=== PATIENT | female | born 2000 | race African-American/Black ===

== ENCOUNTER 2023-12-06 17:42 | Emergency (ER) | payer BC ==
[2023-12-06 17:50] VITALS: BP 132/76; PULSE 113; RESP 16; TEMP 98.7; BMI 25.4
[2023-12-06] MEDS: SODIUM CHLORIDE 0.9% 500 ML INFUS.BAG IV ONE (18:33)
[2023-12-06 18:44] LABS: INR 1.14 (0.83-1.09); PROTHROMBIN TIME (PATIENT) 12.8 SEC (9.7-13.0)
[2023-12-06 18:53] LABS: POTASSIUM 3.8 mmol/L (3.5-5.1)
[2023-12-06 18:55] LABS: CALCIUM 9.3 mg/dL (8.5-10.1)
[2023-12-06 18:57] LABS: ALBUMIN 3.5 g/dl (3.4-5.0); BLOOD UREA NITROGEN 5.4 mg/dL (7-18)
[2023-12-06] MEDS ORDERED: FLUCONAZOLE 100 MG TABLET (UD) ONE (18:57)
[2023-12-06 18:59] LABS: PHOSPHOROUS 3.6 mg/dL (2.5-4.9)
[2023-12-06 19:00] LABS: BASO % 0.4 % (0-2.0); EOS % 0.6 % (0-4.5); HEMATOCRIT 23.6 % (32.4-45.2); HEMOGLOBIN 7.2 GM/dL (10.7-15.3); LYMPH % 19.2 % (8-40); MCHC 30.6 g/dl (32.0-36.0); MEAN CELL VOLUME 52.3 fl (80-96); MEAN PLT VOLUME 8.2 fl (7.5-11.1); MONO % 8.5 % (3.8-10.2); NEUT % 71.3 % (42.8-82.8); PLATELET COUNT 740 10^3/uL (134-434); RBC 4.51 M/mm3 (3.60-5.2); RDW 21.7 % (11.6-15.6); WHITE BLOOD COUNT 10.9 K/mm3 (4.0-10.0)
[2023-12-06 19:01] LABS: BILIRUBIN,TOTAL 0.3 mg/dL (0.2-1)
[2023-12-06 20:17] LABS: ANISOCYTOSIS 2+; MACROCYTOSIS 0; TEAR DROP CELLS 1+
[2023-12-06 22:06] LABS: PH,URINE 5.5 (5.0-8.0); URINE APPEARANCE Clear; URINE BILIRUBIN Negative (NEGATIVE); URINE COLOR Yellow; URINE GLUCOSE (UA) Negative (NEGATIVE); URINE KETONE Negative (NEGATIVE); URINE LEUK ESTERASE Negative (NEGATIVE); URINE NITRITE Negative (NEGATIVE); URINE PROTEIN Negative (NEGATIVE); URINE UROBILINOGEN 0.2 mg/dL (0.2-1.0)
== END 2023-12-06 22:07 | disposition home or self-care (01) ==
LOC: JER 17:42
DX: R10.31 Right lower quadrant pain (principal); D64.9 Anemia, unspecified; R19.7 Diarrhea, unspecified; R10.32 Left lower quadrant pain
CPT/HCPCS: 36415; 74177-TC; 80053; 81003; 83735; 84100; 84443; 84703; 85025; 85610; 85730; 86850; 86900; 86901; 87086; 93005; 93010; 99285-25